=== PATIENT | male | born 1985 | race Caucasian/White ===

== ENCOUNTER 2017-02-13 13:11 | Emergency (ER) | payer SELFPAY ==
[~2017-02-13] VITALS: Ht 182.9 cm; Wt 109.0 kg
[~2017-02-13 13:11] MED LIST: AMOXICILLIN500 MG OR; DOLACET1 CAP OR; FLEXERIL OR; GENTASOL0.3 % OS; LORTAB 10 OR; NAPROSYN500 MG OR; NAPROSYN500 MG PO; NAPROXEN375 MG OR; NO; NO HOME MEDS; PERCOCET 5/325M1 TAB PO; ULTRAM50 M1 PO; ULTRAM50 MG OR; no home meds
[2017-02-13] MEDS ORDERED: MACROBID100 MG PO (13:52)
[2017-02-13 15:00] VITALS: BP 128/91
[2017-02-13 17:04] LABS: URINE BILIRUBIN - DIPSTICK NEGATIVE (NEGATIVE); URINE BLOOD DIPSTICK LARGE (NEGATIVE); URINE GLUCOSE - DIPSTICK NEGATIVE (NEGATIVE); URINE KETONE NEGATIVE (NEGATIVE); URINE LEUK ESTERASE TRACE (NEGATIVE); URINE PH >=9.0 (4.5-8.0); URINE PROTEIN - DIPSTICK 100 mg/dL (NEG-TRACE)
[2017-02-13 17:05] LABS: URINE CLARITY CLOUDY; URINE COLOR RED; URINE NITRITE - DIPSTICK POSITIVE (Negative)
[2017-02-13 17:19] LABS: URINE BACTERIA FEW hpf; URINE RBC TNTC RBC/hpf (0-5)
== END 2017-02-13 15:03 | disposition home or self-care (01) | DRG 696 ==
LOC: ED 13:11
PROVIDERS: Emergency Medicine
DX: R31.9 Hematuria, unspecified (principal); F17.210 Nicotine dependence, cigarettes, uncomplicated; S31.109D Unspecified open wound of abdominal wall, unspecified quadrant without penetration into peritoneal cavity, subsequent encounter; W34.00XD Accidental discharge from unspecified firearms or gun, subsequent encounter; Z96.0 Presence of urogenital implants

== ENCOUNTER 2019-10-26 14:28 | Emergency (ER) | payer SELFPAY ==
[~2019-10-26 14:28] MED LIST changes: +MACROBID100 MG PO
[2019-10-26] MEDS ORDERED: ZPAK PO (15:55)
[2019-10-26] MEDS ORDERED: ROBITUSSIN AC10 ML PO (15:55)
[2019-10-26 16:03] VITALS: BP 148/89
== END 2019-10-26 16:10 | disposition home or self-care (01) | DRG 153 ==
LOC: ED 14:28
DX: J06.9 Acute upper respiratory infection, unspecified (principal); F17.210 Nicotine dependence, cigarettes, uncomplicated

== ENCOUNTER 2020-05-10 14:39 | Emergency (ER) | payer SELFPAY ==
[~2020-05-10] VITALS: Ht 182.9 cm; Wt 125.0 kg
[~2020-05-10 14:39] MED LIST changes: +ROBITUSSIN AC10 ML PO; +ZPAK PO
[2020-05-10 14:50] VITALS: BP 136/82
== END 2020-05-10 15:40 | disposition left against medical advice (07) | DRG 951 ==
LOC: ED 14:39
DX: Z91.19 Patient's noncompliance with other medical treatment and regimen (principal)

== ENCOUNTER 2020-06-20 22:46 | Emergency (ER) | payer SELFPAY ==
[~2020-06-20] VITALS: Ht 182.9 cm; Wt 108.0 kg
[2020-06-20 23:31] VITALS: BP 140/72
== END 2020-06-20 23:31 | disposition home or self-care (01) | DRG 563 ==
LOC: ED 22:46
DX: S46.911A Strain of unspecified muscle, fascia and tendon at shoulder and upper arm level, right arm, initial encounter (principal); F17.200 Nicotine dependence, unspecified, uncomplicated; X50.0XXA Overexertion from strenuous movement or load, initial encounter; Y93.89 Activity, other specified; Y92.89 Other specified places as the place of occurrence of the external cause; Y99.0 Civilian activity done for income or pay

== ENCOUNTER 2022-09-16 11:51 | Emergency (ER) | payer SELFPAY ==
[~2022-09-16] VITALS: Ht 182.9 cm; Wt 120.2 kg
[2022-09-16] VITALS (11 sets, daily range): BP systolic 122–161; BP diastolic 81–108
[2022-09-16 12:47] LABS: BASO% 0.4 % (0-3); HEMATOCRIT 45.2 % (39.0-50.0); HEMOGLOBIN 15.1 g/dl (14.0-18.0); IMMATURE GRANULOCYTES 0.5 % (0.0-5.0); LYMPH% 20.9 % (15-41); MEAN CELL VOLUME 91.1 fL CALC (80.0-100.0); MEAN CORPUSCULAR HGB 30.4 pG CALC (26.0-32.0); MEAN CORPUSCULAR HGB CONC 33.4 g/dL CAL (32.0-36.0); MONO% 5.7 % (2-13); NEUT# 7.99 thou/uL (1.82-7.42); NEUT% 72.5 % (42-76); RED BLOOD COUNT 4.96 mill/uL (4.70-6.10); RED CELL DISTRI WIDTH 12.3 % (11.5-15.5)
[2022-09-16 13:11] LABS: URINE BILIRUBIN - DIPSTICK NEGATIVE (NEGATIVE); URINE BLOOD DIPSTICK MODERATE (NEGATIVE); URINE COLOR YELLOW; URINE GLUCOSE - DIPSTICK NEGATIVE (NEGATIVE); URINE KETONE NEGATIVE (NEGATIVE); URINE LEUK ESTERASE NEGATIVE (NEGATIVE); URINE PROTEIN - DIPSTICK NEGATIVE (NEG-TRACE); URINE SPECIFIC GRAVITY 1.015; URINE UROBILINOGEN - DIPSTICK 0.2 E.U./dL (0.2)
[2022-09-16 13:13] LABS: URINE NITRITE - DIPSTICK NEGATIVE (Negative)
[2022-09-16 13:21] LABS: ALBUMIN 4.1 g/dL (3.2-5.0); ALKALINE PHOSPHATASE 61 u/l (38-126); ANION GAP 13 (6-22 (CALC)); BILIRUBIN, TOTAL 0.7 mg/dL (0.2-1.3); BUN 13 mg/dL (9-20); BUN/CREATININE RATIO 15 (12-20 (CALC)); CARBON DIOXIDE 22 mmol/l (22-30); CHLORIDE 106 mmol/l (95-108); CREATININE 0.9 mg/dL (0.7-1.3); GFR FOR AFR.AMER. > 60 ML/MIN (>=60 (CALC)); GFR OTHER RACES > 60 ML/MIN (>=60 (CALC)); POTASSIUM 4.2 mmol/l (3.5-5.1); SGOT/AST 37 u/l (17-59); SODIUM 137 mmol/l (137-146); TOTAL PROTEIN 6.8 g/dL (6.3-8.2)
[2022-09-16] MEDS ORDERED: TAMSULOSIN0.4 MG PO (15:09)
[2022-09-16] MEDS ORDERED: BACTRIM DS1 TAB PO (15:09)
== END 2022-09-16 15:26 | disposition home or self-care (01) | DRG 696 ==
LOC: ED 11:51
PROVIDERS: Nurse Practitioner
DX: R33.9 Retention of urine, unspecified (principal); R31.9 Hematuria, unspecified; F17.200 Nicotine dependence, unspecified, uncomplicated
CPT/HCPCS: Q9967

== ENCOUNTER 2023-02-21 10:31 | Emergency (ER) | payer BC ==
[~2023-02-21] VITALS: Ht 182.9 cm; Wt 198.0 kg
[~2023-02-21 10:31] MED LIST changes: +BACTRIM DS1 TAB PO; +TAMSULOSIN0.4 MG PO
[2023-02-21 12:01] VITALS: BP 141/98
[2023-02-21] MEDS ORDERED: NAPROXEN500 MG PO (12:17)
[2023-02-21 12:23] VITALS: BP 141/98
== END 2023-02-21 12:37 | disposition home or self-care (01) | DRG 556 ==
LOC: ED 10:31
DX: M25.512 Pain in left shoulder (principal); F17.200 Nicotine dependence, unspecified, uncomplicated